=== PATIENT | male | born 1995 | race Caucasian/White ===

== ENCOUNTER → 2017-11-21 | Outpatient (CLI) | payer OTHER ==
--- NOTE | 2017-11-21 11:42 | DIAGNOSTIC IMAGING REPORT ---
RIGHT KNEE 4 VIEWS CLINICAL HISTORY: Right knee pain. FINDINGS: AP, lateral, tunnel, and sunrise views of the right knee are obtained. No prior studies are available for comparison at the time of dictation. The skeletal structures are well mineralized. No fracture is seen. The joint spaces of the knee are preserved. No osteochondral defect is identified on the tunnel image. There is no joint effusion. The overlying soft tissues are within normal limits. IMPRESSION: No acute bony abnormality is seen in the right knee. Electronically signed by: Wallace Stuart M.D. 11/21/2017 11:41 AM Dictated Date/Time: 11/21/2017 11:40 AM
== END ==
LOC: C.RDSM 10:22
PROVIDERS: ATTEND Internal Medicine
DX: S89.91XA Unspecified injury of right lower leg, initial encounter (principal); X58.XXXA Exposure to other specified factors, initial encounter